=== PATIENT | male | born 1965 | race Caucasian/White ===

== ENCOUNTER 2022-03-11 11:22 | Emergency (ER) | payer OTHER ==
[~2022-03-11] VITALS: Ht 170.2 cm; Wt 84.8 kg
[2022-03-11 11:24] VITALS: BP 178/113
--- NOTE | 2022-03-11 11:30 | NUR ---
PT AMBULATED TO BED 02.
[2022-03-11] MEDS ORDERED: KETOROLAC 30 MG/ML VIAL IVP ONE (11:55)
--- NOTE | 2022-03-11 12:04 | NUR ---
Dr. Ritter evaluating patient at bedside.
[2022-03-11 12:08] LABS: BASOPHILS # (AUTO) 0.1 K/uL (0.00-0.22); BASOPHILS % (AUTO) 1.1 % (0.0-2.0); EOSINOPHILS # (AUTO) 0.2 K/uL (0-0.4); EOSINOPHILS % (AUTO) 2.2 % (0.0-4.0); HEMATOCRIT 43.9 % (36-52); HEMOGLOBIN 14.6 g/dL (12.0-18.0); LYMPHOCYTES # (AUTO) 1.2 K/uL (2.0-11.5); LYMPHOCYTES % (AUTO) 16.3 % (20.5-51.1); MEAN CORPUSCULAR HEMOGLOBIN 29 pg (27-31); MEAN CORPUSCULAR HGB CONC 33 g/dL (33-37); MEAN CORPUSCULAR VOLUME 88.3 fL (80-94); MONOCYTES # (AUTO) 0.9 K/uL (0.8-1.0); MONOCYTES % (AUTO) 11.5 % (1.7-9.3); NEUTROPHILS # (AUTO) 5.2 K/uL (1.8-7.7); NEUTROPHILS % (AUTO) 68.9 % (42.2-75.2); PLATELET COUNT (AUTO) 341 K/uL (140-450); RED BLOOD CELL COUNT(AUTO) 4.97 MIL/uL (4.20-6.10); RED CELL DISTRIBUTION WIDTH 13.3 % (11.6-13.7); WHITE BLOOD COUNT (AUTO) 7.5 K/uL (4.8-10.8)
--- NOTE | 2022-03-11 12:11 | NUR ---
[facility]
--- NOTE | 2022-03-11 12:17 | NUR ---
urine sample obtained, handed to CPT Roxanne at bedside.
[2022-03-11 12:23] LABS: ANION GAP 10.9 (8-16); CARBON DIOXIDE 29.4 mmol/L (21-32); CREATININE 1.1 mg/dL (0.6-1.3); POTASSIUM 4.3 mmol/L (3.5-5.1); TOTAL BILIRUBIN 0.3 mg/dL (0.0-1.0)
[2022-03-11 12:25] LABS: BILIRUBIN,URINE NEGATIVE (NEGATIVE); BLOOD, URINE 2+ (NEGATIVE); COLOR,URINE YELLOW (YELLOW); LEUKOCYTE ESTERASE ,URINE NEGATIVE (NEGATIVE); NITRITE, URINE NEGATIVE (NEGATIVE); UGLUCOSE NEGATIVE (NEGATIVE)
[2022-03-11 12:26] LABS: APPEARANCE,URINE SLIGHTLY HAZY (CLEAR)
[2022-03-11 12:28] LABS: WBC,URINE 0-5 /HPF (0-5)
[2022-03-11 12:29] LABS: CALCIUM OXALATE CRYSTALS,UR None Seen /HPF (None Seen); COARSE GRANULAR CASTS,URINE None Seen /LPF (None Seen); FINE GRANULAR CASTS,URINE None Seen /LPF (None Seen); HYALINE CASTS, URINE None Seen /LPF (None Seen); OTHER CASTS, URINE None Seen /LPF (None Seen); OTHER CRYSTALS,URINE None Seen /HPF (None Seen); RED BLOOD CELL CASTS,URINE None Seen /LPF (None Seen); TRICHOMONAS,URINE None Seen /HPF (None Seen); TRIPLE PHOSPHATE CRYSTAL,UR None Seen /HPF (None Seen); URIC ACID CRYSTALS,URINE None Seen /HPF (None Seen); URINE AMORPHOUS URATE None Seen /HPF (None Seen); WAXY CASTS,URINE None Seen /LPF (None Seen); YEAST,URINE None Seen /HPF (None Seen)
--- NOTE | 2022-03-11 13:54 | NUR ---
Dr. Ritter re-evaluating patient at bedside.
[2022-03-11] MEDS ORDERED: TAMS0.4C96 PO (14:27)
[2022-03-11] MEDS ORDERED: ACET-8386 PO (14:27)
[2022-03-11] MEDS ORDERED: IBUP-2213 PO (14:27)
[2022-03-11 14:42] VITALS: BP 141/76
--- NOTE | 2022-03-11 14:42 | NUR ---
Patient discharged with v/s stable. Written and verbal after care instructions given. Patient alert, oriented and verbalized understanding of instructions. Ambulatory with steady gait. All questions addressed prior to discharge. ID band removed. Patient advised to follow up with PMD. Rx of Hydrocodone-Acetaminophen, Ibuprofen and Tamulosin given. Opportunity to ask questions provided and answered.
--- NOTE | 2022-03-11 14:43 | NUR ---
The patient's care was reviewed and supervised by Ann-Marie Robles RN.
== END 2022-03-11 14:42 | disposition home or self-care (01) ==
LOC: MED 11:22
DX: N20.0 Calculus of kidney (principal); F17.200 Nicotine dependence, unspecified, uncomplicated; F12.90 Cannabis use, unspecified, uncomplicated; Z98.890 Other specified postprocedural states
CPT/HCPCS: 36415; 74176; 80053; 81001; 83690; 85025; 96374; 99284; J1885

== ENCOUNTER 2022-07-26 16:23 | Emergency (ER) | payer OTHER ==
[~2022-07-26] VITALS: Ht 175.3 cm; Wt 74.8 kg
[~2022-07-26 16:23] MED LIST: ACET-8386 PO; IBUP-2213 PO; TAMS0.4C96 PO
[2022-07-26 16:44] VITALS: BP 139/102
[2022-07-26] MEDS ORDERED: ACYC-258 PO ×2 (19:11→21:16)
[2022-07-26] MEDS ORDERED: BACTO TP ×2 (19:11→21:16)
--- NOTE | 2022-07-26 19:27 | NUR ---
Patient discharged with v/s stable. Written and verbal after care instructions given and explained. Patient verbalized understanding. Ambulatory with steady gait. All questions addressed prior to discharge. Advised to follow up with PMD.
== END 2022-07-26 19:27 | disposition home or self-care (01) ==
LOC: MED 16:23
DX: R21 Rash and other nonspecific skin eruption (principal); M54.2 Cervicalgia; F17.200 Nicotine dependence, unspecified, uncomplicated; Z79.899 Other long term (current) drug therapy
CPT/HCPCS: 99283